=== PATIENT | female | born 2000 | race Caucasian/White ===

== ENCOUNTER 2025-05-20 11:48 | Inpatient (IN) ==
[2025-05-20] MEDS ORDERED: OXYTOCIN 30 UNITS/NSS 30 UNITS/500 ML BAG IV PRN (16:44)
[2025-05-20] MEDS ORDERED: LIDOCAINE 1% LOCAL 20 ML VIAL INFIL PRN (16:44)
--- NOTE | 2025-05-20 16:46 | History & Physical Report ---
Date of Service May 20, 2025 Assessment & Plan (1) Normal labor: Plan admit for labor. Desires expectant management for now. arom/pit as indicated. fetus category one. anticipate . History of Present Illness Chief Complaint: contractions Primary Care Provider: NO PCP Patient is a 24yowf with iup at 40 1/7 who presents to labor and delivery with worsening contractions. no lof/vb. +FM. Had been walking at home but more painful. and Delivery Plans Obesity (BMI between 35-39 @ beginning of ) *Growth US @ 32 wks *Weekly NSTs @ 36wks Patient would prefer not to be told her weight Rubella non-immune - MMR Hep B non-immune - to see PCP for vaccination OB Labs: Blood Type A Positive 10/19/24 Antibody Screen NEGATIVE 10/19/24 Hgb 12.0 g/dl (12.0-16.0) 03/01/25 Hct 34.8 % (37.0-47.0) L 03/01/25 MCV 83.1 fL (80.0-100.0) 10/19/24 Plt Count 315 K/uL (130-400) 10/19/24 Rubella IgG Antibody Non Immune (Immune) L 10/19/24 Treponema pallidum Ab Negative (Negative) 03/01/25 Hep Bs Antigen Negative (Negative) 10/19/24 Hepatitis C Antibody Negative (Negative) 10/19/24 HIV 1&2 Ab/P24 Ag 4thGn Negative (Negative) 10/19/24 Glucose 1 Hr 50 gm 100 mg/dl (70-130) 03/01/25 OB Optional Labs: Chlamydia trachomatis RNA Not Detected (NotDetected) 10/19/24 Neisseria gonorrhoeae RNA Not Detected (NotDetected) 10/19/24 low risk panorama. gbs neg Allergies Allergy/AdvReac Type Severity Reaction Status Date / Time mushroom Allergy Mild Verified 05/15/25 14:16 amitriptyline AdvReac Severe suicidal Verified 05/15/25 14:16 ideation banana Allergy Mild Uncoded 05/15/25 14:16 Home Medications Medication Instructions Recorded Confirmed Type vits no.130-ferrous fum 1 tab PO DAILY 09/26/24 05/20/25 History 27 mg iron-folic acid 800 mcg tablet ( Vitamin) Patient History Medical History Hemiplegic migraine Eating disorder ADHD Varicella Surgical History Status post surgery nerve release bilat legs S/P wisdom tooth extraction S/P dilatation and curettage impacted IUD Family History Grandmother (Maternal) Breast cancer Grandmother (Maternal) Ovarian cancer great GM Family/Other Asthma siblings Denies family history of Colorectal cancer Social History Smoking Status: Never smoker Do You Dip or Chew Tobacco: No; Hx Alcohol Use: No Hx Substance Use: Yes Last Used Substance Other:: 07/02 Substance Use Type Other:: has medical marijuana card for migraines but has not used since before conc Preferred Language: Icelandic Communication Ability: Effective Log Cooker Required: No Beliefs That Will Affect Care: None marital status: marital status details: John Summers (29) [phone] Current Living Situation: Spouse Current Living Situation Comment: lives with spouse, no pets current occupational status: employed current occupation: [employer] Other Information That Helps Us Care for You: No Feels Safe at Home: Yes Safety Concerns: Feels Safe At This Time Assistive Devices: None OB History g1--present [employer] History noncontributory Physical Exam Constitutional: WD/WN, vitals as above Gastrointestinal (Abdomen): obese, soft, nt Psychiatric: A+Ox3, euthymic affect Genitourinary: cx--changed from tight 1 to 3/80/-2 per nursing. toco--q2-4min efm--130s with mod variability, accels to 160s, no decels Results & Data Vital Signs (Past 12 Hours) Vital Signs Temp Pulse Resp BP 05/20/25 14:50 91 H 05/20/25 14:50 140/75 05/20/25 13:36 76 05/20/25 13:36 138/76 05/20/25 12:04 36.8 C 85 20 131/71 10/12/25 11:56 36.8 C 85 20 131/71 Coding Level of Care Code None Diagnoses Normal labor O80; Z37.9
[2025-05-20 18:19] LABS: Hematocrit (blood only) 36.7 % (37.0-47.0); Hemoglobin 12.2 g/dl (12.0-16.0); Mean Corpuscular Hemoglobin 27.7 pg (25.0-34.0); Mean Corpuscular Volume 83.2 fL (80.0-100.0); Platelet Count 298 K/uL (130-400); RDW Standard Deviation 46.5 fL (36.4-46.3); Red Blood Count 4.41 M/uL (4.20-5.40); White Blood Count 10.81 K/ul (4.8-10.8)
[2025-05-20] MEDS: LACTATED RINGER'S 1,000 ML IV PRN (19:16)
[2025-05-20] MEDS: OXYTOCIN 30 UNITS/NSS 30 UNITS/500 ML BAG IV PRN (19:20)
[2025-05-20] MEDS: BUPIVACAINE 0.25% PF 30 ML VIAL ONE (21:31)
[2025-05-20] MEDS: LIDOCAINE 2%/EPINEPHRINE 1:200,000 20 ML PF ONE (21:31)
[2025-05-20] MEDS: fentANYL 2 MCG/ML BUPIVacaine 0.125%-NSS 100ML BAG ONE (21:35)
[2025-05-20] MEDS ORDERED: ROPIVACAINE 0.5% PF 5 MG/ML 20 ML VIAL EPI PRN (21:45)
[2025-05-20] MEDS ORDERED: NALOXONE HCL 1 MG in SODIUM CHLORIDE 0.9% 1,000 ML IV PRN (21:45)
[2025-05-20] MEDS ORDERED: SODIUM CHLORIDE 0.9% PF INJ 10 ML VIAL EPI PRN (21:45)
[2025-05-20] MEDS ORDERED: LIDOCAINE 2% MPF LOCAL 5 ML VIAL EPI PRN (21:45)
[2025-05-20] MEDS ORDERED: NALOXONE HCL 0.4 MG/1 ML VIAL/CARP IV PRN (21:45)
[2025-05-20] MEDS ORDERED: diphenhydrAMINE 50 MG/ML VIAL IV PRN (21:45)
[2025-05-20] MEDS ORDERED: BUPIVACAINE 0.25% PF 30 ML VIAL EPI PRN (21:45)
[2025-05-20] MEDS ORDERED: NALBUPHINE HCL INJ 10 MG/ML AMP IV PRN (21:45)
[2025-05-20] MEDS: SODIUM CHLORIDE 0.9% PF INJ 10 ML VIAL ONE (21:48)
--- NOTE | 2025-05-20 21:48 | Anesthesiology Consultation ---
Date of Service May 20, 2025 Assessment & Plan Chart Review Chart Review: Acceptable Risk for Labor Epidural Consults Requested none History Height/Weight Height: 5 ft 9 in Weight: 131.088 kg Allergies Allergy/AdvReac Type Severity Reaction Status Date / Time mushroom Allergy Mild Verified 05/15/25 14:16 amitriptyline AdvReac Severe suicidal Verified 05/15/25 14:16 ideation banana Allergy Mild Uncoded 05/15/25 14:16 Medications Home Medications Medication Instructions Recorded Confirmed Last Taken vits no.130-ferrous fum 1 tab PO DAILY 09/26/24 05/20/25 05/19/25 12:00 27 mg iron-folic acid 800 mcg tablet ( Vitamin) Active Medications Generic Name Dose Route Start Last Admin Trade Name Freq PRN Reason Stop Dose Admin Lactated Ringer's 1,000 mls @ 125 mls/hr 05/20/25 16:44 05/20/25 21:23 Lr IV 05/22/25 16:43 125 mls/hr .Q8H PRN Administration L&D Protocol Protocol Oxytocin 30 units in 500 mls @ 4 mls/hr 05/20/25 18:53 05/20/25 20:30 Pitocin 30 Units/Nss IV 05/22/25 18:52 0.24 units/hr .Q24H PRN 4 mls/hr Labor Induction/Augmentation Titration Protocol 0.24 UNITS/HR Past Medical History Medical History Hemiplegic migraine Eating disorder ADHD Varicella Past Family History Family History Grandmother (Maternal) Breast cancer Grandmother (Maternal) Ovarian cancer great GM Family/Other Asthma siblings Denies family history of Colorectal cancer Past Surgical History Surgical History Status post surgery nerve release bilat legs S/P wisdom tooth extraction S/P dilatation and curettage impacted IUD Social History Smoking Status: Never smoker Do You Dip or Chew Tobacco: No Hx Alcohol Use: No Hx Substance Use: Yes substance use type: marijuana Substance Use Type Other:: has medical marijuana card for migraines but has not used since before conc Last Used Substance Other:: 07/02 Physical Exam Vital Signs Last Vital Signs Temp 36.5 C 05/20/25 20:32 Pulse 89 05/20/25 21:45 Resp 18 05/20/25 20:32 BP 106/59 L 05/20/25 21:44 Pulse Ox 95 05/20/25 21:45 O2 Del Method Room Air 05/20/25 19:06 Testing Laboratory Results 05/20/25 17:54
--- NOTE | 2025-05-20 22:15 | Labor Progress Brief Note ---
Date of Service May 20, 2025 Subjective comfortable after epidural Assessment & Plan (1) Normal labor: Plan continue pitocin augmentation. fse placed as baby very active and difficult external tracing. fetus category one. Admission and Anticipated Discharge Date Admission Date: May 20, 2025 Physical Exam Physical Exam: cx--4/100/-2 toco--q2-4min, pit at 4 efm--130s with mod variability, accels to 150s, no decels arom for copious clear Results & Data Vital Signs (Past 12 Hours) Vital Signs Temp Pulse Resp BP Pulse Ox O2 Del Method 05/20/25 22:10 98 05/20/25 22:10 74 05/20/25 22:05 99 05/20/25 22:05 85 05/20/25 22:01 93 H 05/20/25 22:01 123/57 L 05/20/25 22:00 97 05/20/25 22:00 78 05/20/25 21:55 97 05/20/25 21:55 83 05/20/25 21:50 96 05/20/25 21:50 82 05/20/25 21:45 95 05/20/25 21:45 89 05/20/25 21:44 77 05/20/25 21:44 106/59 L 05/20/25 21:42 89 05/20/25 21:42 101/56 L 05/20/25 21:40 95 05/20/25 21:40 92 H 05/20/25 21:40 80 05/20/25 21:40 104/58 L 05/20/25 21:38 85 05/20/25 21:38 104/57 L 05/20/25 21:36 73 05/20/25 21:36 111/55 L 05/20/25 21:35 96 05/20/25 21:35 75 05/20/25 21:34 75 05/20/25 21:34 106/55 L 05/20/25 21:32 78 05/20/25 21:32 113/56 L 05/20/25 21:30 97 05/20/25 21:30 71 05/20/25 21:30 77 05/20/25 21:30 121/71 05/20/25 21:28 73 05/20/25 21:28 127/81 05/20/25 21:26 78 10/12/25 21:26 129/74 05/20/25 21:25 96 05/20/25 21:25 82 05/20/25 21:24 82 05/20/25 21:24 138/85 05/20/25 21:20 96 05/20/25 21:20 87 05/20/25 21:17 91 05/20/25 21:17 88 05/20/25 21:15 95 05/20/25 21:15 85 05/20/25 21:11 78 05/20/25 21:11 137/89 05/20/25 21:10 97 05/20/25 21:10 75 05/20/25 21:09 93 05/20/25 21:09 91 H 05/20/25 21:05 99 05/20/25 21:05 76 05/20/25 21:00 98 05/20/25 21:00 76 05/20/25 20:55 99 05/20/25 20:55 71 05/20/25 20:50 97 05/20/25 20:50 78 05/20/25 20:45 98 05/20/25 20:45 87 05/20/25 20:32 18 05/20/25 20:32 36.5 C 18 05/20/25 20:32 82 05/20/25 20:32 110/56 L 05/20/25 19:06 36.8 C 18 05/20/25 19:06 Room Air 05/20/25 19:00 18 05/20/25 19:00 36.8 C 18 05/20/25 18:54 20 05/20/25 18:54 20 05/20/25 18:54 99 H 05/20/25 18:54 144/81 H 05/20/25 17:16 82 05/20/25 17:16 140/82 05/20/25 14:50 91 H 05/20/25 14:50 140/75 05/20/25 13:36 76 05/20/25 13:36 138/76 05/20/25 12:04 36.8 C 85 20 131/71 05/20/25 11:56 36.8 C 85 20 131/71 Coding Level of Care Code None Diagnoses Normal labor O80; Z37.9
[2025-05-20] MEDS: SODIUM CHLORIDE 0.9% PF INJ 10 ML VIAL EPI STA (22:33)
[2025-05-20] MEDS: BUPIVACAINE 0.25% PF 30 ML VIAL EPI STA (22:33)
[2025-05-20] MEDS: LIDOCAINE 2%/EPINEPHRINE 1:200,000 20 ML PF EPI STA (22:33)
[2025-05-20] MEDS ORDERED: NURSING L&D Epidural Breakthrough Pain Update ONE (23:05)
--- NOTE | 2025-05-21 00:03 | Anesthesia Procedure Note ---
Date of Service May 21, 2025 Anesthesia Epidural Re-Dose Vital Signs Temp Pulse Resp BP Pulse Ox O2 Del Method 36.6 C 90 18 116/60 98 Room Air 05/20/25 23:35 05/21/25 00:01 05/20/25 23:35 05/21/25 00:01 05/21/25 00:00 05/20/25 19:06 Notes Pain Intensity: 9 Dilatation (cm): 5.0 Effacement (%): 90 Called by nursing to evaluate epidural as the patient is having increased pain. The epidural was re-dosed with the following medications (all medications via epidural route) after negative aspiration of the epidural catheter for CSF/HEME. 2% lidocaine 5ml with fentanyl 100mcg. After Epidural Re-Dose Mental Status: alert / awake / arousable Pain: improving with treatment Airway Patency, RR, SpO2: stable & adequate BP & HR: stable & adequate
--- NOTE | 2025-05-21 00:21 | Labor Progress Brief Note ---
Date of Service May 21, 2025 Subjective got a redose Assessment & Plan (1) Normal labor: Plan continue current management. fetus category one. Admission and Anticipated Discharge Date Admission Date: May 20, 2025 Physical Exam Physical Exam: cx--5/100/-2 iupc placed toco--difficult tracing, pit at 8 efm--120s with mod variability, accels present, no decels Results & Data Vital Signs (Past 12 Hours) Vital Signs Temp Pulse Resp BP Pulse Ox O2 Del Method 05/21/25 00:17 81 121/61 05/21/25 00:15 120 H 99/52 L 98 05/21/25 00:13 82 96/53 L 05/21/25 00:11 85 96/51 L 05/21/25 00:10 84 96 05/21/25 00:09 77 108/54 L 05/21/25 00:07 78 105/55 L 05/21/25 00:05 70 113/58 L 96 05/21/25 00:03 72 109/55 L 05/21/25 00:01 90 116/60 05/21/25 00:00 67 18 98 05/20/25 23:59 65 05/20/25 23:59 115/56 L 05/20/25 23:55 97 05/20/25 23:55 81 05/20/25 23:50 98 05/20/25 23:50 70 05/20/25 23:45 98 05/20/25 23:45 73 05/20/25 23:44 64 05/20/25 23:44 113/58 L 05/20/25 23:40 96 05/20/25 23:40 74 05/20/25 23:35 18 05/20/25 23:35 36.6 C 18 05/20/25 23:35 99 05/20/25 23:35 63 05/20/25 23:30 98 05/20/25 23:30 83 05/20/25 23:30 123/74 05/20/25 23:25 100 05/20/25 23:25 92 H 05/20/25 23:20 98 05/20/25 23:20 78 05/20/25 23:15 100 05/20/25 23:15 83 05/20/25 23:14 75 10/12/25 23:14 128/79 05/20/25 23:10 98 05/20/25 23:10 68 05/20/25 23:05 97 05/20/25 23:05 68 05/20/25 23:00 18 05/20/25 23:00 18 05/20/25 23:00 98 05/20/25 23:00 65 05/20/25 22:59 75 05/20/25 22:59 120/72 05/20/25 22:55 97 05/20/25 22:55 68 05/20/25 22:50 99 05/20/25 22:50 66 05/20/25 22:45 98 05/20/25 22:45 68 05/20/25 22:45 65 05/20/25 22:45 125/77 05/20/25 22:40 99 05/20/25 22:40 70 05/20/25 22:35 97 05/20/25 22:35 72 05/20/25 22:30 18 05/20/25 22:30 18 05/20/25 22:30 98 05/20/25 22:30 70 05/20/25 22:29 63 05/20/25 22:29 136/82 05/20/25 22:25 98 05/20/25 22:25 68 05/20/25 22:20 98 05/20/25 22:20 69 05/20/25 22:16 73 05/20/25 22:16 136/77 05/20/25 22:15 96 05/20/25 22:15 72 05/20/25 22:10 18 05/20/25 22:10 36.6 C 18 05/20/25 22:10 98 05/20/25 22:10 74 05/20/25 22:05 99 05/20/25 22:05 85 05/20/25 22:01 93 H 05/20/25 22:01 123/57 L 05/20/25 22:00 97 05/20/25 22:00 78 05/20/25 21:55 97 05/20/25 21:55 83 05/20/25 21:50 96 05/20/25 21:50 82 05/20/25 21:45 95 05/20/25 21:45 89 05/20/25 21:44 77 05/20/25 21:44 106/59 L 05/20/25 21:42 89 05/20/25 21:42 101/56 L 05/20/25 21:40 95 05/20/25 21:40 92 H 05/20/25 21:40 80 05/20/25 21:40 104/58 L 05/20/25 21:38 85 05/20/25 21:38 104/57 L 05/20/25 21:36 73 05/20/25 21:36 111/55 L 05/20/25 21:35 96 05/20/25 21:35 75 05/20/25 21:34 75 05/20/25 21:34 106/55 L 05/20/25 21:32 78 05/20/25 21:32 113/56 L 05/20/25 21:30 97 05/20/25 21:30 71 05/20/25 21:30 77 05/20/25 21:30 121/71 05/20/25 21:28 73 05/20/25 21:28 127/81 05/20/25 21:26 78 05/20/25 21:26 129/74 05/20/25 21:25 96 05/20/25 21:25 82 05/20/25 21:24 82 05/20/25 21:24 138/85 05/20/25 21:20 96 05/20/25 21:20 87 05/20/25 21:17 91 05/20/25 21:17 88 05/20/25 21:15 95 05/20/25 21:15 85 05/20/25 21:11 78 05/20/25 21:11 137/89 05/20/25 21:10 97 05/20/25 21:10 75 05/20/25 21:09 93 05/20/25 21:09 91 H 05/20/25 21:05 99 05/20/25 21:05 76 05/20/25 21:00 98 05/20/25 21:00 76 05/20/25 20:55 99 05/20/25 20:55 71 05/20/25 20:50 97 05/20/25 20:50 78 05/20/25 20:45 98 05/20/25 20:45 87 05/20/25 20:32 18 05/20/25 20:32 36.5 C 18 05/20/25 20:32 82 05/20/25 20:32 110/56 L 05/20/25 19:06 36.8 C 18 05/20/25 19:06 Room Air 05/20/25 19:00 18 05/20/25 19:00 36.8 C 18 05/20/25 18:54 20 05/20/25 18:54 20 05/20/25 18:54 99 H 05/20/25 18:54 144/81 H 05/20/25 17:16 82 05/20/25 17:16 140/82 05/20/25 14:50 91 H 05/20/25 14:50 140/75 05/20/25 13:36 76 05/20/25 13:36 138/76 Coding Level of Care Code None Diagnoses Normal labor O80; Z37.9
[2025-05-21] MEDS: fentANYL 2 MCG/ML BUPIVacaine 0.125%-NSS 100ML BAG EPI PRN (01:39)
--- NOTE | 2025-05-21 04:25 | Delivery Summary ---
Vaginal Delivery Summary Date of Service May 21, 2025 Vaginal Delivery Summary and 2nd Degree LAC Pre-operative Diagnosis: at 40 weeks labor Post-operative Diagnosis: same Procedure: pitocin augmentation epidurla arom fse/iupc second degree laceration repair QBL: 162cc Anesthesia: epidural Procedure: The patient presented in early labor. Eventually she got pit aug, epidural and arom. FSE and IUPC placed for better monitoring. She progressed to c/c/+2. The patient pushed for about 12 minutes to deliver a viable male in aixa position. The nose and mouth were bulb suctioned on the perineum and the rest of the was then delivered without difficulty through a loose nuchal cord. The baby was vigorous. The nose and mouth were again bulb suctioned and the was placed in the maternal abdomen for drying and att ention. Cord was clamped and cut at one minute of life. Cord blood and segment obtained. Placenta delivered spontaneous, intact with a three vessel cord. Cervix/sulci/rectum were intact. A second degree perineal laceration was repaired in the normal standard fashion. Hemostasis obtained with dilute pitocin and fundal massage. Apgars were 8/9. Mother and baby doing well at the end of the delivery. MNP Vaginal Delivery Charge Delivery Type Details: and 2nd Degree LAC
[2025-05-21] MEDS ORDERED: HYDROCORTISONE ACETATE 25 MG SUPP PR PRN (05:10)
[2025-05-21] MEDS ORDERED: OXYTOCIN 30 UNITS/NSS 30 UNITS/500 ML BAG IV PRN (05:10)
[2025-05-21] MEDS: DIPHTHER/TETAN/PERTUS Vaccine (Tdap, Adol/Adult) 0.5mL IM ONE (05:27)
[2025-05-21] MEDS: BENZOCAINE 20% SPRY 85 APPLN/85 GM CAN EXT PRN (05:30)
[2025-05-21] MEDS: ACETAMINOPHEN 325 MG TAB PO PRN (05:30)
--- NOTE | 2025-05-21 06:13 | Anesthesia Procedure Note ---
Date of Service May 21, 2025 Anesthesia Post Epidural Note Vital Signs Vital Signs: Temp Pulse Resp BP Pulse Ox O2 Del Method 36.8 C 103 H 18 132/63 97 Room Air 05/21/25 03:23 05/21/25 06:11 05/21/25 05:45 05/21/25 06:11 05/21/25 04:15 05/20/25 19:06 Pain Intensity Bilateral Abdomen: Pain Intensity: 3 Notes Mental Status: alert / awake / arousable Nausea / Vomiting: adequately controlled Pain: adequately controlled Airway Patency, RR, SpO2: stable & adequate BP & HR: stable & adequate Hydration State: stable & adequate Neuraxial Anesthesia: was administered and sensory block is resolving Anesthetic Complications: no major complications apparent and Pt Satisfied with anesthetic care Epidural: Removed without complications and With tip intact
[2025-05-21] MEDS: DOCUSATE SODIUM 100 MG CAP PO SCH (07:40)
[2025-05-21] MEDS: PRENATAL VITAMIN 1 TAB PO SCH (07:40)
[2025-05-21] MEDS: IBUPROFEN 600 MG TAB PO PRN (09:19)
[2025-05-21 20:10] VITALS: O2SAT 99
[2025-05-22 06:05] LABS: Hematocrit (blood only) 32.3 % (37.0-47.0); Hemoglobin 10.3 g/dl (12.0-16.0); Mean Corpuscular Hemoglobin 27.2 pg (25.0-34.0); Mean Corpuscular Volume 85.4 fL (80.0-100.0); Platelet Count 236 K/uL (130-400); RDW Standard Deviation 48.4 fL (36.4-46.3); Red Blood Count 3.78 M/uL (4.20-5.40); White Blood Count 8.06 K/ul (4.8-10.8)
--- NOTE | 2025-05-22 06:17 | Obstetrical Progress Note ---
Date of Service May 22, 2025 Assessment & Plan (1) Normal labor: (2) care and examination: Plan: 24yo post- day 1 s/p Fells well today Continue post- care Encourage ambulation and bottle feeding Pain controlled with Ibuprofen, Tylenol Vital Signs and Hgb stable MMR vaccine recommended due to rubella non-immune status Hepatitis B vaccine recommended outpatient Discharge home today, follow up with OB provider in 6 weeks. Admission and Anticipated Discharge Date Admission Date: May 20, 2025 Supervising Physician Co-Signing Physician Notes Patient seen with resident and agree with the above findings plan. Stable for discharge as preferred Subjective 24yo post- day 1 s/p Ambulation: Ambulating normally Voiding: No voiding problems Passing Gas:: Yes Diet Tolerance:: regular diet Lochia:: Small Feeding Type:: bottle feeding Current Pain Level: 3/10 controlled with Tylenol, Ibuprofen Resting comfortably this AM in NAD. Denies SANDY, CP, SOB, N/V/D, LE pain/swelling. Review of Systems Review of Systems: per HPI Physical Exam 2 Physical Exam: General: patient resting comfortably, NAD, non-toxic in appearance, answers questions appropriately Skin: warm, dry, intact Heart: S1/S2 heard, regular, no m/r/g Lungs: equal air entry bilaterally, no rales/rhonchi/wheezes Abd: Normoactive BS, soft, NT/ND, uterine fundus firm below umbilicus Ext: warm, no clubbing/cyanosis or edema, Kathleen's neg Neuro: nonfocal, patient AAOx4, speech intact, no facial droop, moving all extremities on command Results & Data Vital Signs (Past 12 Hours) Vital Signs Temp Pulse Resp BP Pulse Ox O2 Del Method 05/22/25 04:00 36.5 C 65 16 121/79 99 Room Air 05/21/25 23:15 36.7 C 80 16 137/84 99 Room Air 05/21/25 19:05 36.9 C 78 16 138/82 99 Room Air Resident Activity Tracking Resident Involvement: Resident Care Provided Care Provided: OB Delivery
[2025-05-22 07:34] VITALS: BP 126/76; RESP 18; TEMP 97.5
[2025-05-22 09:13] VITALS: PULSE 82
[2025-05-22] MEDS: MEASLES, MUMPS & RUBELLA VIRUS VACCINE (MMR) 0.5ML VIAL SQ ONE (10:02)
== END 2025-05-22 13:50 | disposition home or self-care (01) | DRG 807 ==
LOC: OPB 11:48 → 4S1 11:51 → 4E2 05-21 06:25